=== PATIENT | male | born 1970 | race Caucasian/White ===

== ENCOUNTER 2019-03-31 07:18 | Day surgery (SDC) | payer OTHER ==
[2019-03-31] VITALS (7 sets, daily range): BP systolic 105–126; BP diastolic 66–78
[~2019-03-31] VITALS: Ht 165.1 cm; Wt 66.2 kg
--- NOTE | 2019-03-31 05:54 | Anethesia Preoperative Eval ---
Anesthesia Pre-op PMH/ROS General Date of Evaluation: Mar 31, 2019 Time of Evaluation: 05:50 Anesthesiologist: alyx ASA Score: ASA 3 Mallampati Score Class I : Soft palate, uvula, fauces, pillars visible Class II: Soft palate, uvula, fauces visible Class III: Soft palate, base of uvula visible Class IV: Only hard plate visible Mallampati Classification: Class II Surgeon: sindy Diagnosis: gerd Surgical Procedure: egd Anesthesia History: none Social History: smoking - nonsmoker Family History: no anesthesia problems Allergies: Coded Allergies: CODEINE (Verified Allergy, Severe, Itching, 03/30/19) PENICILLINS (Verified Adverse Reaction, Severe, Nausea/Vomiting/Diarrhea, 03/30/19) Medications: see eMAR Patient NPO?: Yes Past Medical History Cardiovascular: Reports: other - hypercholesterolemia Pulmonary: Reports: asthma, other - seasonal allergies Gastrointestinal/Genitourinary: Reports: GERD, other - kidney stones Neurologic/Psychiatric: Reports: depression/anxiety, other - headache HEENT: Reports: other - decreased visual acuity PSxH Narrative: left ureteral stent placement Anesthesia Pre-op Phys. Exam Physician Exam Last Vital Signs Date Time Temp Pulse Resp B/P (MAP) Pulse Ox O2 Delivery O2 Flow Rate FiO2 03/31/19 07:51 97.2 62 20 126/76 99 Room Air Constitutional: NAD Neurologic: CN 2-12 intact Cardiovascular: RRR Respiratory: CTA Gastrointestinal: S/NT/ND Airway Exam Mallampati Score: Class II MO: full Neck: flexible TMD: 2fb ROM: full Anesthesia Pre-op A/P Risk Assessment & Plan Assessment: asa3 Plan: mac Status Change Before Surgery: No Pre-Antibiotics Drug: Rena Klein MD Mar 31, 2019 05:54
[~2019-03-31 07:18] MED LIST: ALBUTEROL SULF8.5 GM INH; Atropine Inj 1mg/10ml Syr IV PRN; CRESTOR10 M2 ORAL; DiphenhydrAMINE 50mg/ml Inj IVP PRN; LR 1000ml 1,000 ML IVLG SCH; MULTIVITAMINS1 EAC2 ORAL; Midazolam 2mg/2ml Inj IVP PRN; PROSCAR5 MG ORAL; ZYRTEC-D TABLE1 EACH ORAL; fentaNYL 100 mcg/2 mL IV PRN
[2019-03-31] MEDS ORDERED: Lidocaine 1% MPF 10mg/ml 5ml ONE (07:45)
[2019-03-31] MEDS ORDERED: Propofol 200mg/20ml IV ONE (07:45)
[2019-03-31] MEDS ORDERED: LR 1000ml ONE (07:45)
--- NOTE | 2019-03-31 07:50 | NUR ---
IV LR WAS STARTED BY ANTONIA HERRERA.TONIA RN. NO S/S OF INFILTRATION.
--- NOTE | 2019-03-31 08:14 | Short Stay Surgery H&P ---
History of Present Illness History of Present Illness Chief Complaint see typed H&P HPI Haim Saini Aman is a 49 year old male who was admitted on for GERD Patient History Allergies: Coded Allergies: CODEINE (Verified Allergy, Severe, Itching, 03/30/19) PENICILLINS (Verified Adverse Reaction, Severe, Nausea/Vomiting/Diarrhea, 03/30/19) Medication History Scheduled Cetirizine Hcl/Pseudoephedrine (Zyrtec-D Tablet), 1 EACH ORAL DAILY, (Reported) Finasteride* (Proscar*), 1 MG ORAL DAILY, (Reported) Multivitamins* (Multivitamins*), 1 TAB ORAL DAILY, (Reported) Rosuvastatin Calcium* (Crestor*), 10 MG ORAL 3XW, (Reported) Scheduled PRN Albuterol Sulfate* (Albuterol Sulfate Mdi*), 2 PUFF INH Q4H PRN for Shortness of Breath, (Reported) Physical Exam Vital Signs Last Vital Signs Date Time Temp Pulse Resp B/P (MAP) Pulse Ox O2 Delivery O2 Flow Rate FiO2 03/31/19 07:51 97.2 62 20 126/76 99 Room Air Plan Attestation Are the patient's medical conditions optimized for surgery? Genevieve Chappell MD Mar 31, 2019 08:14
--- NOTE | 2019-03-31 08:15 | Pre-Procedure Note/Attestation ---
Pre-Procedure Note/Attestation Complete Prior to Procedure Planned Procedure: not applicable Procedure Narrative: EGD Indications for Procedure Pre-Operative Diagnosis: GERD Attestation I attest that I discussed the nature of the procedure; its benefits; risks and complications; and alternatives (and the risks and benefits of such alternatives ), prior to the procedure, with the patient (or the patient's legal industrial sales representative). I attest that, if there was a reasonable possibility of needing a blood transfusion, the patient (or the patient's legal industrial sales representative) was given the [facility] standardized written summary, pursuant to the Timothy Otho Blood Safety Act ([place] Health and Safety Code # 1645, as amended). I attest that I re-evaluated the patient just prior to the surgery and that there has been no change in the patient's H&P, except as documented below: Genevieve Chappell MD Mar 31, 2019 08:15
--- NOTE | 2019-03-31 08:38 | Brief Operative Note ---
Immediate Post Operative Note Operative Note Chief Complaint: REYMUNDO Pre-op Diagnosis: GERD Procedure: ED, Bx Surgeon: Misti Specimen: yes Complications: none Fluids: Per anesthesia Implant(s) used?: No Genevieve Chappell MD Mar 31, 2019 08:38
--- NOTE | 2019-03-31 08:38 | Endoscopy Procedure Note ---
Endoscopy Procedure Note General Indication for Procedure: REYMUNDO Procedures Performed: EGD Operative Findings/Diagnosis: erosive kiran Specimen: yes Pt Tolerated Procedure Well: Yes Estimated Blood Loss: none Anesthesia Anesthesiologist: Seng Herrmann Anesthesia: MAC Inserted Devices Implant(s) used?: No GI Core Measures 50 yrs or older w/o bx or poly: Not Applicable 10yrs. F/U recommended: Not Applicable Genevieve Chappell MD Mar 31, 2019 08:38
--- NOTE | 2019-03-31 08:55 | Immediate Post-Op Evaluation ---
Immediate Post-Op Evalulation Immediate Post-Op Evalulation Procedure: egd w/bx Date of Evaluation: Mar 31, 2019 Time of Evaluation: 08:50 IV Fluids: 250ml lr Blood Products: none Estimated Blood Loss: negligible Blood Pressure Systolic: 105 Blood Pressure Diastolic: 68 Pulse Rate: 62 Respiratory Rate: 18 O2 Sat by Pulse Oximetry: 100 Temperature (Fahrenheit): 97.0 Pain Score (1-10): 0 Nausea: No Vomiting: No Complications none Patient Status: awake, reacts, patent Hydration Status: adequate Drug: Rena Klein MD Mar 31, 2019 08:55
--- NOTE | 2019-03-31 08:56 | 48 Hour Post Anesthesia Eval ---
Post Anesthesia Evaluation Procedure: egd w/bx Date of Evaluation: Mar 31, 2019 Time of Evaluation: 08:52 Blood Pressure Systolic: 118 0: 66 Pulse Rate: 62 Respiratory Rate: 18 Temperature (Fahrenheit): 97.0 O2 Sat by Pulse Oximetry: 100 Airway: patent Nausea: No Vomiting: No Pain Intensity: 0 Hydration Status: adequate Cardiopulmonary Status: stable Mental Status/LOC: patient returned to baseline Post-Anesthesia Complications: none Follow-up care needed: N/A Rena Stout MD Mar 31, 2019 08:56
--- NOTE | 2019-03-31 11:45 | Operative Note - Dictated ---
GASTROENTEROLOGY PROCEDURE REPORT PROCEDURE: Upper gastrointestinal endoscopy with biopsy. SURGEON: Genevieve Chappell M.D. ANESTHESIA: Please see the separate anesthesiologist notes for details. PRE-ENDOSCOPIC DIAGNOSIS: Symptoms of gastroesophageal reflux. POST-ENDOSCOPIC DIAGNOSES: 1. Mild erosive gastritis in the antrum. 2. Status post random biopsies of the antrum, lower esophagus and mid esophagus. DESCRIPTION OF PROCEDURE: The procedure, its risks, indications, alternatives, and possible complications were explained to the patient and informed consent was obtained. The patient was then sedated in the left lateral decubitus position. A diagnostic upper endoscope was introduced through the oropharynx and advanced to the duodenum without difficulty. The endoscope was then gradually withdrawn and the mucosa examined carefully. Examination of the upper gastrointestinal mucosa revealed some scattered mild erosions in the antrum. These were biopsied. There were however no gross ulcers seen. The retroflexed view of the fundus did not reveal any abnormalities. The biopsies of the lower esophagus and mid esophagus were sent to pathology for review. There is no obvious evidence of esophagitis or esophageal ulcerations. The endoscope was removed and the patient was sent to recovery in good condition. COMPLICATIONS: None. RECOMMENDATIONS: 1. Follow up biopsy results. 2. Begin famotidine tablets daily as instructed previously. 3. Reflux precautions. 4. Outpatient followup. Genevieve Chappell M.D. DR: CIPRIANO JOB#: [id number] CC:
== END 2019-03-31 10:00 | disposition home or self-care (01) ==
LOC: GAS 07:18
DX: K21.9 Gastro-esophageal reflux disease without esophagitis (principal); Z88.0 Allergy status to penicillin; Z88.6 Allergy status to analgesic agent; Z79.899 Other long term (current) drug therapy; E78.00 Pure hypercholesterolemia, unspecified; F32.9 Major depressive disorder, single episode, unspecified; F41.9 Anxiety disorder, unspecified; Z87.442 Personal history of urinary calculi; K29.50 Unspecified chronic gastritis without bleeding
CPT/HCPCS: 43239; J2704; 94003; 94150